=== PATIENT | male | born 1940 | race Caucasian/White ===

== ENCOUNTER 2016-12-06 20:34 | Inpatient (IN) | payer OTHER ==
[~2016-12-06] VITALS: Ht 177.8 cm; Wt 85.3 kg
[~2016-12-06 20:34] MED LIST: HYDROCHLOROT; HYDROCHLOROTHIA50 MG PO; KLOR-CON M1010 MEQ PO; LOVAZA1 GM PO; MOTRIN600 MG PO; OMEPRAZOLE20 MG; SYMBICORT60 INHALAT
[2016-12-06 22:00] LABS: BASE EXCESS 4.8 mEq/L (-3 to +3); BICARBONATE 29.2 mEq/L (22-26); CARBOXY HGB 7.3 % (0-5); METHEMOGLOBIN 0.8 % (0-1.5); PCO2 41 mm Hg (35-45); PO2 69 mm Hg (80-100); pH 7.46 (7.35-7.45)
[2016-12-06 22:01] LABS: COMMENTS - BLOOD GASES A+C+; DEVICE NC; O2 FLOW 3 L/MIN; SITE RR
[2016-12-06 22:09] LABS: CHLORIDE 99 mEq/L (99-109); POTASSIUM 3.6 mEq/L (3.7-5.4); SODIUM 136 mEq/L (136-147)
[2016-12-06 22:10] LABS: INTER. NORMALIZED RATIO 1.1; PROTHROMBIN TIME 11.5 (9.2-11.2); PTT 29.9 (25-32)
[2016-12-06 22:11] LABS: GLUCOSE 114 mg/dL (70-99)
[2016-12-06 22:12] LABS: ANION GAP 10 MEQ/L (2-14)
[2016-12-06 22:13] LABS: TOTAL BILIRUBIN 0.8 mg/dL (0.0-1.0)
[2016-12-06 22:14] LABS: SERUM ETHYL ALCOHOL < 10 mg/dL
[2016-12-06 22:15] LABS: Estimated Average Glucose 123 mg/dL (70-123); GFR ESTIMATE (CALCULATED) > 59 mL/min/; HEMATOCRIT 43.1 % (38.0-50.0); HEMOGLOBIN A1c (GLYCOHEMOGLOB) 5.9 % HGB (Below 5.7); MCH 31.2 PG (29.0-34.0); MEAN PLAT.VOLUME 10.4 uM^3 (9.0-12.4); PLATELET COUNT 268 K/uL (156-360); RBC DIS.WIDTH-CV 13.8 % (11.8-14.6); RBC DIS.WIDTH-SD 45.1 % (39-53); RED BLOOD COUNT 4.84 M/uL (4.00-5.50); WHITE BLOOD COUNT 15.3 K/uL (4.1-10.2)
[2016-12-06 22:16] LABS: ALKALINE PHOSPHATASE 116 IU/L (3-129)
[2016-12-06 22:17] LABS: UREA NITROGEN (BUN) 18 mg/dL (9-23)
[2016-12-06 22:18] LABS: SALICYLATE < 5.0 MG/DL (15-30)
[2016-12-06 22:20] LABS: TROP-I INTERPRETATION NEGATIVE; TROPONIN-I < 0.01 ng/mL (0.0-0.30)
[2016-12-06 22:21] LABS: EOSINOPHIL (%) 0.7 % (0-5); EOSINOPHIL COUNT 0.1 K/uL (0-0.3); IMMATURE GRANULOCYTE (%) 0.3 % (0.0-0.7); LYMPHOCYTE COUNT 2.9 K/uL (1.0-2.8); MONOCYTE (%) 6.4 % (3-12); NEUTROPHIL (%) 73.7 % (45-76); NEUTROPHIL COUNT 11.3 K/uL (1.8-6.4)
[2016-12-06 22:30] LABS: HDL CHOLESTEROL 34 MG/DL (Desirable>=40); LDL CHOLESTEROL 82 mg/dL (Desirable<100); NON-HDL CHOLESTEROL 94 mg/dL (Desirable<160); TOTAL CHOLESTEROL 128 mg/dL (Desirable<200); TRIGLYCERIDES 59 MG/DL (Normal: <150)
[2016-12-06] MEDS ORDERED: ALPRAZOLAM0.25 M2 PO (23:19)
[2016-12-06] MEDS ORDERED: VENLAFAXINE HCL75 M3 PO (23:19)
[2016-12-06] MEDS ORDERED: TAMSULOSIN HCL0.4 MG PO (23:20)
[2016-12-06] MEDS ORDERED: NAPROXEN500 MG PO (23:20)
[2016-12-06] MEDS ORDERED: LANSOPRAZOLE30 MG PO (23:20)
[2016-12-06] MEDS ORDERED: COMBIVENT RESPIM4 GM IH (23:21)
[2016-12-06] MEDS ORDERED: VENTOLIN HFA18 GM IH (23:21)
[2016-12-06] MEDS ORDERED: DESYREL100 MG PO (23:22)
[2016-12-07 02:15] LABS: ADD MIUA? YES; BILIRUBIN SMALL; BLOOD LARGE; COLOR DK YELLOW ((YELLOW)); GLUCOSE (STRIP) NEGATIVE; KETONES 40; LEUKOCYTES SMALL; NITRITE NEGATIVE; PROTEIN (STRIP) 30; SPECIFIC GRAVITY 1.024 (1.000-1.030)
[2016-12-07 02:32] LABS: BACTERIA 1+ /HPF; CASTS NONE SEEN /LPF; CRYSTALS NONE SEEN; EPITHELIAL CELLS RARE /HPF; MUCUS NONE SEEN /LPF; RED BLOOD CELLS TNTC /HPF (0-5); UCUL ADDED? NO; WHITE BLOOD CELLS 0-5 /HPF (0-5)
[2016-12-07 15:30] VITALS: BP 101/55
[2016-12-07 22:57] VITALS: BP 120/60
[2016-12-08 08:11] VITALS: BP 137/81
[2016-12-08 11:41] VITALS: BP 136/80
[2016-12-08] MEDS ORDERED: FLUOXETINE HCL10 MG PO (13:38)
== END 2016-12-08 15:55 | disposition home or self-care (01) | DRG 948 ==
LOC: EME 20:34 → 5EAST 22:42 → EDOF 22:42 → 5EAST 12-07 14:58
PROVIDERS: Emergency Medicine
DX: R41.0 Disorientation, unspecified (principal); R25.1 Tremor, unspecified; T42.4X5A Adverse effect of benzodiazepines, initial encounter; T43.215A Adverse effect of selective serotonin and norepinephrine reuptake inhibitors, initial encounter; J44.1 Chronic obstructive pulmonary disease with (acute) exacerbation; F32.9 Major depressive disorder, single episode, unspecified; F41.1 Generalized anxiety disorder; K21.9 Gastro-esophageal reflux disease without esophagitis; I10 Essential (primary) hypertension; G89.29 Other chronic pain; F17.200 Nicotine dependence, unspecified, uncomplicated; Z96.651 Presence of right artificial knee joint; Z23 Encounter for immunization
CPT/HCPCS: 36600; 70450; 71010; 80053; 80061; 81003; 82140; 82803; 83036; 84484; 85025; 85610; 85730; 93005; 94640; 94640 76; 94799; 99202; 99281; 99285; G0480; J1630; J2060; J7030

== ENCOUNTER 2018-05-16 12:33 | Emergency (ER) | payer OTHER ==
[~2018-05-16] VITALS: Ht 177.8 cm; Wt 107.0 kg
[~2018-05-16 12:33] MED LIST changes: +ALPRAZOLAM0.25 M2 PO; +COMBIVENT RESPIM4 GM IH; +DESYREL100 MG PO; +FLUOXETINE HCL10 MG PO; +LANSOPRAZOLE30 MG PO; +NAPROXEN500 MG PO; +TAMSULOSIN HCL0.4 MG PO; +VENLAFAXINE HCL75 M3 PO; +VENTOLIN HFA18 GM IH
[2018-05-16 13:45] VITALS: BP 123/63
== END 2018-05-16 13:46 | disposition home or self-care (01) ==
LOC: EME 12:33
PROC: 09C0XZZ Extirpation of Matter from Right External Ear, External Approach (ICD-10-PCS; principal; 2018-05-16)
DX: H61.21 Impacted cerumen, right ear (principal)
CPT/HCPCS: 99281; 99283

== ENCOUNTER → 2018-06-21 | Outpatient (CLI) | payer OTHER ==
[~2018-06-21] MED LIST changes: +CENTRUM SILVER1 EAC3 PO; +NEURONTIN300 MG PO; +OMEPRAZOLE40 M1 PO
== END | disposition home or self-care (01) ==
LOC: OPR 09:37 → EDSTATUS 10:00 → OPR 10:00
DX: C25.9 Malignant neoplasm of pancreas, unspecified (principal); C7A.8 Other malignant neuroendocrine tumors; C78.7 Secondary malignant neoplasm of liver and intrahepatic bile duct; K21.9 Gastro-esophageal reflux disease without esophagitis; F41.1 Generalized anxiety disorder; F17.200 Nicotine dependence, unspecified, uncomplicated
CPT/HCPCS: 77012; 88307; 88341 TC; 88342 TC; J3010